=== PATIENT | male | born 1945 | race Caucasian/White ===

== ENCOUNTER 2017-04-26 20:49 | Emergency (ER) | payer OTHER ==
[2017-04-26 20:59] VITALS: RESP 16; TEMP 98.2; O2SAT 98
[2017-04-26] MEDS ORDERED: traMADol 50 MG TAB PO ONE (21:20)
[2017-04-26] MEDS ORDERED: OXYCODONE/APAP 5/325 TAB PO ONE (21:58)
[2017-04-26] MEDS ORDERED: ONDANSETRON 4 MG/2 ML VIAL ONE (22:27)
[2017-04-26] MEDS ORDERED: ONDANSETRON 4 MG/2 ML VIAL IVP ONE (22:28)
--- NOTE | 2017-04-26 22:36 | EDPHY ---
H & P Stated Complaint: pt says legs gave out/fell - c/o ga/neck tenderness/R shoulder pain HPI/ROS: Chief complaint: Fall with head and neck pain as well as right shoulder and elbow pain History of present illness: This is a 71-year-old male who presents to the emergency department with police and EMS for evaluation of head neck injury as well as right arm injury after sustaining a fall. Patient has chronic musculoskeletal issues, specifically with knee joint issue and shoulder issues. He uses a wheelchair. [facility]. He was sitting in his wheelchair when he tried to get up and his knees gave out he fell backwards striking his head and neck against the wheelchair and then his right shoulder and elbow. Since then he has had pain throughout the head. Pain along the right side of his neck. Pain in the right shoulder and elbow. Worse with movement. No loss of consciousness. No pain along the spine itself, no report of pain or trauma to the chest, abdomen, pelvis or other extremities. No neurologic symptoms such as paresthesias, weakness or paralysis or bowel or bladder dysfunction. Review of systems: A 10 point review of systems was obtained and other than described above was negative - Medical/Surgical History Hx Asthma: No Hx Chronic Respiratory Disease: No Hx Diabetes: No Hx Cardiac Disease: No Hx Renal Disease: No Hx Cirrhosis: No Hx Alcoholism: No Hx HIV/AIDS: No Hx Splenectomy or Spleen Trauma: No Other PMH: insomnia, hernia, anxiety/depress, arthritis, R knee replace, R shoulder replace x 3 - Social History Smoking Status: Never smoked - Physical Exam Exam: General Appearance: Alert, nontoxic Eyes: PERRLA ENT: No hemotympanum, no li sign, no raccoon eyes Respiratory: Lungs clear to auscultation bilaterally Cardiac: Regular rate and rhythm. Gastrointestinal: Bowel sounds normal. Abdomen is soft, nondistended, nontender. Neurological: Alert and oriented x4. Cranial nerves 2-12 grossly intact. Strength and sensation grossly intact. Skin: No lesions consistent with acute trauma Musculoskeletal: No tenderness to the head. The right paraspinal muscles and superior trapezius muscle is tender to palpation. There is no specific tenderness along the spine, no crepitus, bony deformity or step-off on palpation of the spine. Diffuse tenderness to the shoulder and right elbow with pain moving it. The rest of the extremities are unremarkable. Constitutional: Initial Vital Signs Temperature (C) 36.8 C 04/26/17 20:52 Heart Rate 71 04/26/17 20:52 Respiratory Rate 16 04/26/17 20:52 Blood Pressure 100/55 L 04/26/17 20:52 O2 Sat (%) 98 04/26/17 20:52 O2 Delivery Mode Room Air Allergies/Adverse Reactions: No Known Allergies Allergy (Unverified 04/26/17 20:59) Home Medications: Medication Instructions Recorded Citalopram 04/26/17 traMADol 04/26/17 traZODone 04/26/17 Medical Decision Making - Diagnostics Imaging Results: Imaging Impressions Cervical Spine CT 04/26/17 21:19 Impression: Head CT: 1. No acute intracranial abnormalities. 2. Mild chronic microvascular ischemic changes in the supratentorial white matter. 3. Chronic paranasal sinus disease with bony changes about the sphenoid sinus. Cervical Spine: 1. No acute abnormalities. 2. Advanced multilevel degenerative changes and foraminal stenoses, as detailed above. 3. Cannot exclude ligament, spinal cord and/or vascular abnormalities on this exam. If there is persistent pain or neurologic deficit, consider MRI and/or flexion and extension radiographs of the cervical spine. Dr. Rodriguez discussed these findings by telephone with KAYLENE Nazario on 2017 22:27. Head CT 04/26/17 21:19 Impression: Head CT: 1. No acute intracranial abnormalities. 2. Mild chronic microvascular ischemic changes in the supratentorial white matter. 3. Chronic paranasal sinus disease with bony changes about the sphenoid sinus. Cervical Spine: 1. No acute abnormalities. 2. Advanced multilevel degenerative changes and foraminal stenoses, as detailed above. 3. Cannot exclude ligament, spinal cord and/or vascular abnormalities on this exam. If there is persistent pain or neurologic deficit, consider MRI and/or flexion and extension radiographs of the cervical spine. Dr. Rodriguez discussed these findings by telephone with KAYLENE Nazario on 2017 22:27. Elbow X-Ray 04/26/17 21:20 Impression: 1. No acute osseous abnormalities. 2. Soft tissue calcification posterior to the olecranon may reflect remote extensor mechanism trauma. Shoulder X-Ray 04/26/17 21:20 Impression: 1. No acute osseous abnormalities. 2. Status post reverse right total shoulder arthroplasty. 3. Widening of the acromioclavicular joint space, likely remote trauma. Imaging: Discussed imaging studies w/ call or contact centre operator Radiologist ED Course/Re-evaluation: Patient discussed with my primary supervising physician Dr. Shanta Taylor. Patient presents to the emergency department for injury to the head, neck and right arm. CT scans and x-rays are negative for acute findings. He has a nonfocal neurologic exam. By history and physical exam no evidence of trauma to other parts of the body. He is requesting pain medication, he takes tramadol normally and is given this. Pain persists he is given Percocet and Zofran. He is discharged with the police back to [facility]. He is to follow up with a primary care doctor and his orthopedic doctor for continued evaluation and care. Return precautions are given. Differential Diagnosis: Included but not limited to soft tissue injury, bony fracture, intracranial injury, spinal cord injury - Data Points Medications Given: Discontinued Medications Ondansetron HCl (Zofran) 4 mg IVP EDNOW ONE Stop: 04/26/17 22:29 Last Admin: 04/26/17 22:30 Dose: 4 mg Oxycodone/Acetaminophen (Percocet 5/325) 1 tab PO EDNOW ONE Stop: 04/26/17 21:59 Last Admin: 04/26/17 22:00 Dose: 1 tab Tramadol HCl (Ultram) 50 mg PO EDNOW ONE Stop: 04/26/17 21:21 Last Admin: 04/26/17 21:23 Dose: 50 mg Departure - Departure Disposition: Home, Routine, Self-Care Clinical Impression: Cervical strain, acute Qualifiers: Encounter type: initial encounter Qualified Code(s): S16.1XXA - Strain of muscle, fascia and tendon at neck level, initial encounter Contusion Qualifiers: Encounter type: initial encounter Contusion area: shoulder Laterality: right Qualified Code(s): S40.011A - Contusion of right shoulder, initial encounter Head injury Qualifiers: Encounter type: initial encounter Qualified Code(s): S09.90XA - Unspecified injury of head, initial encounter Condition: Good Instructions: Cervical Strain (ED), Contusion in Adults (ED) Additional Instructions: Follow-up with your primary care doctor and orthopedic doctor this week for recheck If symptoms worsen or new symptoms develop return to the emergency room for recheck Referrals: NONE *PRIMARY CARE P,. [Primary Care Provider] - As per Instructions [facility],. [Clinic] - As per Instructions
[2017-04-26 23:02] VITALS: BP 124/85; PULSE 73
== END 2017-04-26 23:01 | disposition home or self-care (01) ==
DX: S09.90XA Unspecified injury of head, initial encounter (principal); S40.011A Contusion of right shoulder, initial encounter; S16.1XXA Strain of muscle, fascia and tendon at neck level, initial encounter; W05.0XXA Fall from non-moving wheelchair, initial encounter; Y93.89 Activity, other specified
CPT/HCPCS: 96374; J2405

== ENCOUNTER 2017-08-17 10:34 | Emergency (ER) | payer OTHER ==
--- NOTE | 2017-08-17 10:50 | EDPHY ---
H & P Stated Complaint: fell out of wheelchair/ lt wrist pain Time Seen by Provider: 08/17/17 10:46 HPI/ROS: CHIEF COMPLAINT: Left wrist and right knee pain HISTORY OF PRESENT ILLNESS: 72-year-old male arrives with police. The patient is primarily wheelchair bound secondary to history of chronic bilateral knee pain. States that he was being wheeled into the court house this morning by law enforcement, was going down a ramp when the left side of the wheelchair caught causing him to fall forward injuring his right knee and his left wrist. He has a baseline of right humerus fracture and baseline of right upper extremity sling. His acute complaints today are left wrist and right knee pain and right knee abrasion. Tetanus is up-to-date. He denies: Head injury, acute neck pain or injury, back pain or injury, abdominal pain or injury, loss of consciousness, headache, vomiting. REVIEW OF SYSTEMS: A ten point review of systems was performed and is negative with the exception of the items mentioned in the HPI PAST MEDICAL/SURGICAL HISTORY: Wheelchair-bound secondary to chronic bilateral knee pain. Currently residing in longterm. SOCIAL HISTORY: Currently residing in longterm PHYSICAL EXAM 1) GENERAL: In a wheelchair. Well-developed, well-nourished, alert and oriented. Appears to be in no acute distress. Answering questions appropriately. 2) HEAD: Normocephalic, atraumatic 3) HEENT: Pupils equal, round, reactive to light bilaterally. Negative Horners. Nasopharynx, oropharynx, clear. No deformity or angulation of nose. No septal hematoma. No rhinorrhea. No oral trauma. Ears bilaterally with normal tympanic membranes. No hemotympanum. No fluid or blood in the external auditory canal. No raccoon eyes. No Rico sign. Teeth are normally aligned with no gross malocclusion, TMJ bilaterally nontender, facial bones nontender including the zygomatic arch, maxilla mandible. 4) NECK: No cervical collar is on. Posterior cervical spine is nontender, no stepoff, no effusion. Full range of motion which does not elicit any midline cervical spine pain, no posterior midline tenderness, no step-off. 5) LUNGS: Clear to auscultation bilaterally, no wheezes, no rhonchi, no retractions. No obvious signs of trauma. No chest wall pain. No flaring, no grunting. Moving symmetrically. No crepitus. 6) HEART: [Regular rate and rhythm, 7) ABDOMEN: No guarding, no rebound, no focal tenderness, no peritoneal signs, no signs of trauma, no ecchymosis 8) MUSCULOSKELETAL: Left upper extremity: Identity wrist band in place. No anatomic snuffbox pain. Abrasion to the dorsal left wrist and distal radius with associated tenderness. The remainder left upper extremity including left elbow and shoulder are nontender. Soft compartments, neurovascularly intact Right upper extremity: In a sling, neurovascularly intact . Left lower extremity: No visible signs of trauma or tenderness. Right lower extremity: Right prepatellar abrasion with associated tenderness. No effusion. Soft compartments. Bilateral feet or handcuffed 9) BACK: No midline vertebral tenderness, no fluctuance, no step-off, no obvious trauma, no visual or palpable abnormality. 10) SKIN: No laceration. DIFFERENTIAL DIAGNOSIS: In no particular order including but not limited to fracture, dislocation, sprain, strain - Personal History Current Tetanus/Diphtheria Vaccine: Unsure Current Tetanus Diphtheria and Acellular Pertussis (TDAP): Unsure - Medical/Surgical History Hx Asthma: No Hx Chronic Respiratory Disease: No Hx Diabetes: No Hx Cardiac Disease: No Hx Renal Disease: No Hx Cirrhosis: No Hx Alcoholism: No Hx HIV/AIDS: No Hx Splenectomy or Spleen Trauma: No Other PMH: insomnia, hernia, anxiety/depress, arthritis, R knee replace, R shoulder replace x 3 - Social History Smoking Status: Never smoked Constitutional: Initial Vital Signs Temperature (C) 36.4 C 08/17/17 10:36 Heart Rate 82 08/17/17 10:36 Respiratory Rate 18 08/17/17 10:36 Blood Pressure 121/76 H 08/17/17 10:36 O2 Sat (%) 94 08/17/17 10:36 O2 Delivery Mode Room Air Allergies/Adverse Reactions: No Known Allergies Allergy (Unverified 04/26/17 20:59) Home Medications: Medication Instructions Recorded Citalopram 04/26/17 traMADol 04/26/17 traZODone 04/26/17 Medical Decision Making - Diagnostics Imaging Results: Imaging Impressions Knee X-Ray 08/17/17 10:47 Impression: Negative. No acute fracture or effusion. Wrist X-Ray 08/17/17 10:47 Impression: Negative. No acute fracture. Images reviewed myself ED Course/Re-evaluation: 10:49 a.m.: Will obtain x-rays of the left wrist and right knee. Care of patient under supervision of secondary supervising physician Dr Saenz . 11:56 a.m.: Reviewed the patient's x-rays with him. No signs of osseous injury. He is neurovascularly intact. No evidence of compartment syndrome. Plan will be discharge back to the longterm with usual customary orthopedic precautions and instructions. Departure - Departure Disposition: Law Enforcement/Court/Prison Clinical Impression: Abrasion, right knee, initial encounter Fall from wheelchair Qualifiers: Encounter type: initial encounter Qualified Code(s): W05.0XXA - Fall from non- moving wheelchair, initial encounter Left wrist sprain Qualifiers: Encounter type: initial encounter Qualified Code(s): S63.502A - Unspecified sprain of left wrist, initial encounter Condition: Good Instructions: Wrist Injury (ED), Abrasion (ED) Additional Instructions: Return to the ER immediately if you experience discoloration, have worsening pain, numbness, tingling, or any other symptoms that concern you. If you received x-rays in the emergency department today, be advised, that ligamentous , tendon, muscular, and other non-bony injury cannot be fully ruled out. Try to keep your affected extremity elevated above the level of your chest, and keep cold packs on the affected area, for the next 48 hours. Referrals: Nader Botello MD [Medical Doctor] - 2-3 days, call for appt.
[2017-08-17 12:18] VITALS: BP 146/86
== END 2017-08-17 12:16 ==
LOC: EEVIPCON 10:34
DX: S63.502A Unspecified sprain of left wrist, initial encounter (principal); S80.211A Abrasion, right knee, initial encounter; W05.0XXA Fall from non-moving wheelchair, initial encounter; Y92.240 Courthouse as the place of occurrence of the external cause